=== PATIENT | female | born 1945 | race Caucasian/White ===

== ENCOUNTER 2017-12-07 11:05 | Inpatient (IN) | payer MEDICARE ==
[2017-12-07] VITALS (19 sets, daily range): BP systolic 87–145; BP diastolic 41–70
[~2017-12-07] VITALS: Ht 162.6 cm; Wt 75.3 kg
[2017-12-07 11:30] LABS: BASOPHILS % (AUTO) 0.3 % (0-1); EOSINOPHILS # (AUTO) 0.2 X10'3 (0-0.9); HEMATOCRIT 40.6 % (35.0-45.0); HEMOGLOBIN 13.7 g/dl (12.0-16.0); LYMPHOCYTES # (AUTO) 1.2 X10'3 (1.1-4.8); LYMPHOCYTES % (AUTO) 14.1 % (21-51); MEAN CORPUSCULAR HEMOGLOBIN 31.9 PG (27.0-31.0); MEAN CORPUSCULAR HGB CONC 33.7 % (33.0-36.5); MEAN CORPUSCULAR VOLUME 94.7 FL (78-98); MEAN PLATELET VOLUME 8.7 FL (7.4-10.4); MONOCYTES # (AUTO) 0.8 X10'3 (0-0.9); NEUTROPHILS # (AUTO) 6.4 X10'3 (1.8-7.7); NEUTROPHILS % (AUTO) 74.6 % (42-75); PLATELET COUNT 220 X10'3 (140-440); RED BLOOD COUNT 4.28 X10'6 (4.20-5.60); RED CELL DISTRIBUTION WIDTH 13.5 % (11.5-14.5); WHITE BLOOD COUNT 8.6 X10'3 (4.5-11.0)
[2017-12-07 11:39] LABS: PARTIAL THROMBOPLASTIN TIME 27 SECONDS (22-32); PROTHROMBIN TIME 9.9 SECONDS (9.0-12.0)
[2017-12-07 11:44] LABS: ALANINE AMINOTRANSFERASE 19 U/L (12-78); ALBUMIN 3.7 G/DL (3.4-5.0); ALKALINE PHOSPHATASE 59 IU/L (46-116); ANION GAP 9 (8-16); ASPARTATE AMINO TRANSFERASE 28 U/L (10-37); BILIRUBIN,TOTAL 0.4 MG/DL (0.1-1.0); BLOOD UREA NITROGEN 19 MG/DL (7-18); BUN/CREATININE RATIO 21.1 (6.6-38.0); CALCIUM 9.7 MG/DL (8.5-10.1); CHLORIDE 107 MMOL/L (99-107); GLUCOSE 115 MG/DL (70-104); POTASSIUM 3.8 MMOL/L (3.5-5.1); SODIUM 144 MMOL/L (135-145); TOTAL CARBON DIOXIDE 28.5 MMOL/L (24-32); TOTAL PROTEIN 7.4 G/DL (6.4-8.2); eGFR 61 ML/MIN
[2017-12-07] MEDS ORDERED: aspirin 81mg tab.chew PO ONE (11:50)
[2017-12-07] MEDS ORDERED: nitroGLYCERIN 1gm ointment UD TP ONE (11:55)
[2017-12-07] MEDS ORDERED: enoxaparin 100mg/ml syringe SUBCUT ONE (11:55)
[2017-12-07] MEDS ORDERED: nitroGLYCERIN-Tridil 50MG/D5W 250 ML IV PRN (12:22)
[2017-12-07] MEDS ORDERED: ASPI81TA52 PO (12:58)
[2017-12-07] MEDS ORDERED: SYN0.088T PO (12:58)
[2017-12-07] MEDS ORDERED: LIDOcaine 1%/PF (10mg/ml) 5ml vial ONE (13:01)
[2017-12-07] MEDS ORDERED: iohexol 350MG/ML 100ml bottle IV ONE (13:01)
[2017-12-07] MEDS ORDERED: diphenhydrAMINE 50 mg/ml inj ONE (14:00)
[2017-12-07] MEDS ORDERED: midazolam 2 mg/2 ml injection ONE (14:00)
[2017-12-07] MEDS ORDERED: heparin 1,000unit/ml 10ml vial 10 ML ONE (14:05)
[2017-12-07] MEDS ORDERED: phenylephrine 10mg/ml inj IV ONE (15:00)
[2017-12-07] MEDS ORDERED: heparin 1,000 units/ml 10ml inj ONE (15:00)
[2017-12-07] MEDS ORDERED: albumin (human) 25% 100 ML IV solution IV ONE (15:00)
[2017-12-07] MEDS ORDERED: methylPREDNISolone sod. succ. 500mg inj ONE (15:00)
[2017-12-07] MEDS ORDERED: aminocaproic acid 250 MG/1 ML inj. ONE ×2 (15:00→20:10)
[2017-12-07] MEDS ORDERED: calcium chloride 100 MG/1 ML inj IV ONE (15:00)
[2017-12-07] MEDS ORDERED: MAGNESIUM SULFATE 4 MEQ/ML (1gm/2ml) injection ONE (15:00)
[2017-12-07] MEDS ORDERED: potassium Cl 2 mEq/ml inj IV ONE (15:00)
[2017-12-07] MEDS ORDERED: sodium bicarbonate (8.4%) 1 mEq/ml syringe ONE (15:00)
[2017-12-07] MEDS ORDERED: heparin 10,000 units/1 ML INJ IV PRN (15:05)
[2017-12-07] MEDS ORDERED: dextrose 50%-water 50ml dispensing syringe IV PRN (15:15)
[2017-12-07] MEDS ORDERED: vancomycin/NS 1 GM ADD-VANTAGE 250 ML IV ONE (15:15)
[2017-12-07] MEDS ORDERED: cefazolin/dext.iso 2gm/50ml 50 ML IV ONE ×2 (15:15→21:25)
[2017-12-07] MEDS ORDERED: MESSAGE TO NURSING PO ONE ×4 (15:15)
[2017-12-07] MEDS ORDERED: ringers solution, lacted 1,000 ML IV ONE (15:36)
[2017-12-07] MEDS ORDERED: normal saline 1000ml 1,000 ML IV SCH (15:37)
[2017-12-07] MEDS ORDERED: ondansetron/PF 4mg/2ml inj IV PRN (15:40)
[2017-12-07] MEDS ORDERED: acetaminophen 325mg tablet PO PRN ×2 (15:40→16:55)
[2017-12-07] MEDS ORDERED: morphine 4 MG/ML inj SYRINge IV PRN ×2 (15:40)
[2017-12-07] MEDS ORDERED: mag hydrox/Alum hydrox/simeth 30ml oral suspension PO PRN (15:40)
[2017-12-07] MEDS ORDERED: magnesium hydroxide 30ml (MOM) UD suspension PO PRN (15:40)
[2017-12-07] MEDS ORDERED: HYDROcodone/acetaminophen 10/325mg tab PO PRN (16:55)
[2017-12-07] MEDS ORDERED: HYDROcodone/acetaminophen 5mg/325mg tablet PO PRN (16:55)
[2017-12-07] MEDS ORDERED: OXAZEpam 15mg capsule PO PRN (16:55)
[2017-12-07] MEDS ORDERED: proCHLORperazine 10 MG/2 ml inj IV PRN (16:55)
[2017-12-07 17:16] LABS: ABG BASE EXCESS -0.8 mmol/L (-2.0-3.0); ABG HCO3 23.5 mmol/L (22.0-26.0); ABG OXYGEN SATURATION 97.6 % (95-98); ABG PCO2 (T) 37.7 mmHg (32.0-45.0); ABG PH (T) 7.412 (7.350-7.450); ABG PO2 (T) 104.5 mmHg (83-108); ALLEN'S TEST Positive; FCOHb 0.1 % (0.5-1.5); FLOW 2 L/min; FMetHb 0.2 % (0.3-1.12); FO2Hb 97.3 % (94-100); TOTAL HEMOGLOBIN 13.2 G/dl (12.0-16.0)
[2017-12-07 17:24] LABS: BASOPHILS % (AUTO) 0.4 % (0-1); EOSINOPHILS % (AUTO) 0.1 % (0-6); HEMATOCRIT 37.9 % (35.0-45.0); HEMOGLOBIN 12.9 g/dl (12.0-16.0); LYMPHOCYTES % (AUTO) 14.6 % (21-51); MEAN CORPUSCULAR HEMOGLOBIN 32.3 PG (27.0-31.0); MEAN CORPUSCULAR HGB CONC 34.1 % (33.0-36.5); MEAN CORPUSCULAR VOLUME 94.9 FL (78-98); MEAN PLATELET VOLUME 9.8 FL (7.4-10.4); MONOCYTES # (AUTO) 0.4 X10'3 (0-0.9); MONOCYTES % (AUTO) 5.5 % (2-12); NEUTROPHILS # (AUTO) 5.7 X10'3 (1.8-7.7); NEUTROPHILS % (AUTO) 79.4 % (42-75); PLATELET COUNT 200 X10'3 (140-440); RED CELL DISTRIBUTION WIDTH 13.4 % (11.5-14.5); WHITE BLOOD COUNT 7.2 X10'3 (4.5-11.0)
[2017-12-07] MEDS ORDERED: insulin Lispro (HumaLOG) vial - multi-dose SQ SCH (18:00)
[2017-12-07] MEDS ORDERED: amiodarone 150mg/dext, iso-os 100 ML IV ONE (18:15)
[2017-12-07] MEDS ORDERED: amiodarone/D5 360MG/200ML BAG 200 ML IV SCH (18:15)
[2017-12-07] MEDS ORDERED: amiodarone/D5 450MG/250ML BAG 250 ML IV SCH (18:25)
[2017-12-07] MEDS ORDERED: mupirocin 2% ointment 22GM NS SCH (20:00)
[2017-12-07] MEDS ORDERED: nitroGLYCERIN in D5W 50mg/250ml (Tridil) infusion IV ONE (20:10)
[2017-12-07] MEDS ORDERED: isoflurane 100ml inhalation liquid IH ONE (20:10)
[2017-12-07] MEDS ORDERED: albuterol 2.5 MG/3 ML nebule ONE (20:14)
[2017-12-07 20:26] LABS: CLARITY,URINE CLEAR (Clear); COLOR,URINE YELLOW (Yellow); GLUCOSE, URINE NEGATIVE (Neg); KETONES,URINE 15 mg/dl (Neg); LEUKOCYTE ESTERASE ,URINE NEGATIVE (Neg); NITRITES, URINE NEGATIVE (Neg); OCCULT BLOOD,URINE NEGATIVE (Neg); PH,URINE 5.5 (4.8-8.0); PROTEIN,URINE NEGATIVE (Neg); UROBILINOGEN,URINE 0.2 E.U/dL (0.2-1.0)
[2017-12-07 20:31] LABS: UA COLLECTION TYPE FOLEY CATH
[2017-12-07 20:34] LABS: ANION GAP 8 (8-16); BLOOD UREA NITROGEN 14 MG/DL (7-18); BUN/CREATININE RATIO 16.5 (6.6-38.0); CALCIUM 8.5 MG/DL (8.5-10.1); CHLORIDE 106 MMOL/L (99-107); CREATININE 0.85 MG/DL (0.40-0.90); GLUCOSE 198 MG/DL (70-104); MAGNESIUM 1.6 MG/DL (1.5-2.4); POTASSIUM 3.8 MMOL/L (3.5-5.1); SODIUM 142 MMOL/L (135-145); TOTAL CARBON DIOXIDE 28.1 MMOL/L (24-32); eGFR 66 ML/MIN
[2017-12-07 20:35] LABS: HEMOGLOBIN A1C 5.6 % (4.5-6.2)
[2017-12-07] MEDS: insulin regular, human inj. 100 UNITS in normal saline 100ml IV soln 100 ML IV SCH ×2 (21:30)
[2017-12-07] MEDS ORDERED: SUFENTANIL CITRATE 50 MCG/ML 2ml ampule IV ONE (21:49)
[2017-12-07] MEDS ORDERED: rocuronium 10mg/ml inj IV ONE (21:55)
[2017-12-07] MEDS ORDERED: LORazepam 2 mg/ml vial ONE (21:58)
[2017-12-07] MEDS ORDERED: etomidate 2mg/ml inj. ONE (22:04)
[2017-12-07 22:18] LABS: PROTHROMBIN TIME 10.6 SECONDS (9.0-12.0)
[2017-12-07 22:28] LABS: PARTIAL THROMBOPLASTIN TIME 105 SECONDS (22-32)
[2017-12-07] MEDS ORDERED: papaverine 30 mg/ml 2ml inj. IA ONE (22:30)
[2017-12-07] MEDS ORDERED: heparin 10,000 units/1 ML INJ IR ONE (22:30)
[2017-12-07 23:10] LABS: ABG BASE EXCESS -0.9 mmol/L (-2.0-3.0); ABG HCO3 22.1 mmol/L (22.0-26.0); ABG OXYGEN SATURATION 99.3 % (95-98); ABG PCO2 31.4 mmHg (35.0-45.0); ABG PH 7.466 (7.350-7.450); CL (ABG) 108 mmol/L (99-107); FCOHb 0.1 % (0.5-1.5); FMetHb 0.3 % (0.3-1.12); FO2Hb 98.9 % (94-100); GLUCOSE (ABG) 111 mg/dl (70-105); IONIZED CA (ABG) 1.17 mmol/L (1.03-1.32); K (ABG) 3.4 mmol/L (3.3-5.1); NA (ABG) 139 mmol/L (135-145); TOTAL HEMOGLOBIN 11.7 G/dl (12.0-16.0)
[2017-12-08] VITALS (24 sets, daily range): BP systolic 86–124; BP diastolic 50–65
[2017-12-08 00:01] LABS: ABG BASE EXCESS -2.2 mmol/L (-2.0-3.0); ABG OXYGEN SATURATION 98.6 % (95-98); ABG PCO2 35.7 mmHg (35.0-45.0); ABG PH 7.408 (7.350-7.450); ABG PO2 160.3 mmHg (60.0-100.0); CL (ABG) 107 mmol/L (99-107); FCOHb 0.3 % (0.5-1.5); FMetHb 0.2 % (0.3-1.12); FO2Hb 98.1 % (94-100); GLUCOSE (ABG) 134 mg/dl (70-105); IONIZED CA (ABG) 1.13 mmol/L (1.03-1.32); K (ABG) 3.2 mmol/L (3.3-5.1); NA (ABG) 135 mmol/L (135-145); TOTAL HEMOGLOBIN 10.6 G/dl (12.0-16.0)
[2017-12-08 00:31] LABS: ABG BASE EXCESS -2.5 mmol/L (-2.0-3.0); ABG HCO3 21.3 mmol/L (22.0-26.0); ABG OXYGEN SATURATION 99.3 % (95-98); ABG PCO2 31.9 mmHg (35.0-45.0); ABG PH 7.443 (7.350-7.450); ABG PO2 358.3 mmHg (60.0-100.0); CL (ABG) 104 mmol/L (99-107); FCOHb 0.6 % (0.5-1.5); FMetHb 0.2 % (0.3-1.12); FO2Hb 98.5 % (94-100); GLUCOSE (ABG) 128 mg/dl (70-105); IONIZED CA (ABG) 0.96 mmol/L (1.03-1.32); K (ABG) 4.4 mmol/L (3.3-5.1); NA (ABG) 133 mmol/L (135-145)
[2017-12-08 00:51] LABS: ABG BASE EXCESS 1.2 mmol/L (-2.0-3.0); ABG HCO3 25.5 mmol/L (22.0-26.0); ABG OXYGEN SATURATION 99.3 % (95-98); ABG PCO2 38.7 mmHg (35.0-45.0); ABG PH 7.437 (7.350-7.450); ABG PO2 336.9 mmHg (60.0-100.0); CL (ABG) 106 mmol/L (99-107); FCOHb 0.5 % (0.5-1.5); FMetHb 0.1 % (0.3-1.12); FO2Hb 98.7 % (94-100); GLUCOSE (ABG) 135 mg/dl (70-105); K (ABG) 4.1 mmol/L (3.3-5.1); NA (ABG) 135 mmol/L (135-145); TOTAL HEMOGLOBIN 7.1 G/dl (12.0-16.0)
[2017-12-08 01:15] LABS: ABG BASE EXCESS -0.3 mmol/L (-2.0-3.0); ABG HCO3 24.5 mmol/L (22.0-26.0); ABG OXYGEN SATURATION 99.1 % (95-98); ABG PCO2 40.3 mmHg (35.0-45.0); ABG PH 7.401 (7.350-7.450); ABG PO2 354.8 mmHg (60.0-100.0); CL (ABG) 105 mmol/L (99-107); FCOHb 0.4 % (0.5-1.5); FMetHb 0.1 % (0.3-1.12); FO2Hb 98.6 % (94-100); GLUCOSE (ABG) 136 mg/dl (70-105); IONIZED CA (ABG) 1.14 mmol/L (1.03-1.32); K (ABG) 3.9 mmol/L (3.3-5.1); NA (ABG) 134 mmol/L (135-145)
[2017-12-08 01:56] LABS: ABG BASE EXCESS -0.2 mmol/L (-2.0-3.0); ABG OXYGEN SATURATION 97.2 % (95-98); ABG PCO2 36.9 mmHg (35.0-45.0); ABG PH 7.431 (7.350-7.450); ABG PO2 104.6 mmHg (60.0-100.0); CL (ABG) 108 mmol/L (99-107); FCOHb 0.1 % (0.5-1.5); FMetHb 0.8 % (0.3-1.12); FO2Hb 96.3 % (94-100); GLUCOSE (ABG) 146 mg/dl (70-105); IONIZED CA (ABG) 1.21 mmol/L (1.03-1.32); K (ABG) 3.6 mmol/L (3.3-5.1); NA (ABG) 137 mmol/L (135-145); TOTAL HEMOGLOBIN 7.5 G/dl (12.0-16.0)
[2017-12-08] MEDS ORDERED: dextrose 50%-water 50ml dispensing syringe IV PRN (02:15)
[2017-12-08] MEDS ORDERED: nitroGLYCERIN-Tridil 50MG/D5W 250 ML IV PRN (02:15)
[2017-12-08] MEDS ORDERED: sodium phosphate inj. 15 MMOL in dextrose 5%-water 150 ML IV PRN (02:15)
[2017-12-08] MEDS ORDERED: Neutra Phos packet PO PRN (02:15)
[2017-12-08] MEDS ORDERED: magnesium 4gm in 100ml NS 100 ML IV PRN (02:15)
[2017-12-08] MEDS ORDERED: niCARDipine/sod cl 20mg/200ml 200 ML IV PRN (02:15)
[2017-12-08] MEDS ORDERED: magnesium hydroxide 30ml (MOM) UD suspension PO PRN (02:15)
[2017-12-08] MEDS: sodium chloride 0.45% 1,000 ML IV SCH (02:15)
[2017-12-08] MEDS ORDERED: potassium Cl 20mEq/100mL bag 100 ML IV PRN ×2 (02:15)
[2017-12-08] MEDS ORDERED: metoclopramide 5 mg/ml inj IV PRN (02:15)
[2017-12-08] MEDS ORDERED: insulin regular, human inj. 100 UNITS in normal saline 100ml IV soln 100 ML IV SCH ×2 (02:15)
[2017-12-08] MEDS ORDERED: magnesium 2GM in 50ml NS 50 ML IV PRN (02:15)
[2017-12-08] MEDS ORDERED: sodium phosphate inj. 30 MMOL in dextrose 5%-water 250 ML IV PRN (02:15)
[2017-12-08] MEDS ORDERED: DOPamine 400mg/D5W 250ml 250 ML IV PRN (02:15)
[2017-12-08] MEDS ORDERED: normal saline 250ml IV soln 250 ML IV PRN (02:15)
[2017-12-08 03:05] LABS: ABG BASE EXCESS -2.9 mmol/L (-2.0-3.0); ABG HCO3 20.8 mmol/L (22.0-26.0); ABG OXYGEN SATURATION 98.7 % (95-98); ABG PCO2 (T) 30.9 mmHg (32.0-45.0); ABG PH (T) 7.441 (7.350-7.450); ABG PO2 (T) 221.1 mmHg (83-108); FCOHb 0.2 % (0.5-1.5); FMetHb 0.1 % (0.3-1.12); FO2Hb 98.4 % (94-100); MINUTE VOLUME 6 L/min; PEEP 5 cm H2O; RESPIRATORY RATE 12 b/min; RESPIRATORY RATE (OBSERVED) 12 b/min; TIDAL VOLUME 500 mL; TOTAL HEMOGLOBIN 10.6 G/dl (12.0-16.0)
[2017-12-08 03:08] LABS: BASOPHILS % (AUTO) 0.2 % (0-1); EOSINOPHILS % (AUTO) 0.1 % (0-6); HEMATOCRIT 29.3 % (35.0-45.0); HEMOGLOBIN 10.1 g/dl (12.0-16.0); LYMPHOCYTES # (AUTO) 0.7 X10'3 (1.1-4.8); LYMPHOCYTES % (AUTO) 6.2 % (21-51); MEAN CORPUSCULAR HEMOGLOBIN 32.2 PG (27.0-31.0); MEAN CORPUSCULAR HGB CONC 34.3 % (33.0-36.5); MEAN CORPUSCULAR VOLUME 93.9 FL (78-98); MEAN PLATELET VOLUME 8.7 FL (7.4-10.4); MONOCYTES # (AUTO) 0.7 X10'3 (0-0.9); MONOCYTES % (AUTO) 6.3 % (2-12); NEUTROPHILS # (AUTO) 10.3 X10'3 (1.8-7.7); NEUTROPHILS % (AUTO) 87.2 % (42-75); PLATELET COUNT 122 X10'3 (140-440); RED BLOOD COUNT 3.12 X10'6 (4.20-5.60); RED CELL DISTRIBUTION WIDTH 13.3 % (11.5-14.5); WHITE BLOOD COUNT 11.8 X10'3 (4.5-11.0)
[2017-12-08] MEDS: albumin (Human) 5% 250ml 250 ML IV PRN ×3 (03:11→07:10)
[2017-12-08] MEDS ORDERED: amiodarone/D5 450MG/250ML BAG 250 ML IV ONE (03:19)
[2017-12-08 03:21] LABS: INR 1.2 INR; PARTIAL THROMBOPLASTIN TIME 35 SECONDS (22-32); PROTHROMBIN TIME 12.2 SECONDS (9.0-12.0)
[2017-12-08 03:26] LABS: ALANINE AMINOTRANSFERASE 29 U/L (12-78); ALBUMIN 3.1 G/DL (3.4-5.0); ALBUMIN/GLOBULIN RATIO 1.6 (1.1-1.5); ALKALINE PHOSPHATASE 32 IU/L (46-116); ANION GAP 11 (8-16); ASPARTATE AMINO TRANSFERASE 204 U/L (10-37); BILIRUBIN,TOTAL 0.7 MG/DL (0.1-1.0); BLOOD UREA NITROGEN 11 MG/DL (7-18); BUN/CREATININE RATIO 12.8 (6.6-38.0); CALCIUM 8.3 MG/DL (8.5-10.1); CHLORIDE 110 MMOL/L (99-107); CREATININE 0.86 MG/DL (0.40-0.90); GLUCOSE 149 MG/DL (70-104); MAGNESIUM 2.8 MG/DL (1.5-2.4); PHOSPHORUS 1.9 MG/DL (2.3-4.5); POTASSIUM 3.6 MMOL/L (3.5-5.1); SODIUM 146 MMOL/L (135-145); TOTAL CARBON DIOXIDE 25.5 MMOL/L (24-32); eGFR 65 ML/MIN
[2017-12-08] MEDS: morphine 4 MG/ML inj SYRINge IV PRN ×5 (03:44→21:56)
[2017-12-08] MEDS: potassium Cl 20mEq/100mL bag 100 ML IV PRN ×2 (03:44→04:56)
[2017-12-08] MEDS ORDERED: amiodarone/D5 360MG/200ML BAG 200 ML IV SCH (03:50)
[2017-12-08] MEDS: insulin regular, human inj. 100 UNITS in normal saline 100ml IV soln 100 ML IV SCH ×6 (04:13→15:40)
[2017-12-08 05:46] LABS: ACTIVATED CLOTTING TIME 151 SEC (101-148)
[2017-12-08 05:46] LABS: ACT @ 1.70 U 350 SEC (193-297); ACT @ 2.84 U 506 SEC (260-420); BASELINE ACT 180 SEC (101-148); PATIENT WEIGHT 71.0k KG
[2017-12-08] MEDS ORDERED: LORazepam 2 mg/ml vial IV ONE (06:00)
[2017-12-08] MEDS ORDERED: famotidine 20mg tablet PO ONE (06:00)
[2017-12-08] MEDS ORDERED: pantoprazole 40mg Tablet.DR PO SCH (07:30)
[2017-12-08] MEDS: ondansetron/PF 4mg/2ml inj IV PRN (07:43)
[2017-12-08] MEDS: cefazolin 1gm/NS 100mL 100 ML IV SCH ×2 (07:45→16:50)
[2017-12-08] MEDS: vancomycin/NS 1 GM ADD-VANTAGE 250 ML IV SCH ×2 (08:19→20:03)
[2017-12-08] MEDS: insulin Lispro (HumaLOG) vial - multi-dose SQ SCH ×3 (09:00→17:56)
[2017-12-08] MEDS: pantoprazole 40 MG vial IV SCH (09:32)
[2017-12-08 09:50] LABS: BASOPHILS % (AUTO) 0 % (0-1); EOSINOPHILS # (AUTO) 0.1 X10'3 (0-0.9); EOSINOPHILS % (AUTO) 0.8 % (0-6); HEMATOCRIT 24.3 % (35.0-45.0); HEMOGLOBIN 8.5 g/dl (12.0-16.0); LYMPHOCYTES # (AUTO) 0.4 X10'3 (1.1-4.8); LYMPHOCYTES % (AUTO) 4.1 % (21-51); MEAN CORPUSCULAR HEMOGLOBIN 32.5 PG (27.0-31.0); MEAN CORPUSCULAR VOLUME 92.9 FL (78-98); MEAN PLATELET VOLUME 9.6 FL (7.4-10.4); MONOCYTES # (AUTO) 0.5 X10'3 (0-0.9); MONOCYTES % (AUTO) 5.6 % (2-12); NEUTROPHILS # (AUTO) 8.5 X10'3 (1.8-7.7); NEUTROPHILS % (AUTO) 89.5 % (42-75); PLATELET COUNT 103 X10'3 (140-440); RED BLOOD COUNT 2.61 X10'6 (4.20-5.60); RED CELL DISTRIBUTION WIDTH 13.7 % (11.5-14.5); WHITE BLOOD COUNT 9.4 X10'3 (4.5-11.0)
[2017-12-08 09:52] LABS: ALBUMIN 3.7 G/DL (3.4-5.0); ANION GAP 12 (8-16); BLOOD UREA NITROGEN 12 MG/DL (7-18); BUN/CREATININE RATIO 11.9 (6.6-38.0); CALCIUM 7.7 MG/DL (8.5-10.1); CHLORIDE 112 MMOL/L (99-107); CREATININE 1.01 MG/DL (0.40-0.90); GLUCOSE 138 MG/DL (70-104); POTASSIUM 4.4 MMOL/L (3.5-5.1); SODIUM 146 MMOL/L (135-145); TOTAL CARBON DIOXIDE 22.3 MMOL/L (24-32); eGFR 54 ML/MIN
[2017-12-08] MEDS ORDERED: MESSAGE TO NURSING PO ONE (10:00)
[2017-12-08 10:19] LABS: TOTAL HEMOGLOBIN 6.9 G/dl (12.0-16.0)
[2017-12-08 14:42] LABS: TOTAL HEMOGLOBIN 6.8 G/dl (12.0-16.0)
[2017-12-08] MEDS: HYDROcodone/acetaminophen 10/325mg tab PO PRN ×2 (15:29→20:04)
[2017-12-08] MEDS: atorvastatin 10mg tablet PO SCH (16:49)
[2017-12-08] MEDS: docusate sod 100mg capsule PO SCH ×2 (16:49→20:03)
[2017-12-08] MEDS: aspirin 325mg tablet, delayed-release (Ecotrin) PO SCH (16:49)
[2017-12-08] MEDS: levoTHYROXINE 88mcg tablet PO SCH (16:50)
[2017-12-08] MEDS: mupirocin 2% ointment 22GM NS SCH ×2 (16:51→20:03)
[2017-12-09] VITALS (20 sets, daily range): BP systolic 87–124; BP diastolic 48–78
[2017-12-09] MEDS: cefazolin 1gm/NS 100mL 100 ML IV SCH ×3 (00:21→16:30)
[2017-12-09] MEDS: HYDROcodone/acetaminophen 10/325mg tab PO PRN ×3 (00:21→09:27)
[2017-12-09] MEDS: morphine 4 MG/ML inj SYRINge IV PRN (05:10)
[2017-12-09 05:28] LABS: BASOPHILS % (AUTO) 0 % (0-1); EOSINOPHILS % (AUTO) 0 % (0-6); HEMATOCRIT 29.5 % (35.0-45.0); HEMOGLOBIN 10.1 g/dl (12.0-16.0); LYMPHOCYTES # (AUTO) 0.8 X10'3 (1.1-4.8); LYMPHOCYTES % (AUTO) 5.8 % (21-51); MEAN CORPUSCULAR HEMOGLOBIN 31.8 PG (27.0-31.0); MEAN CORPUSCULAR HGB CONC 34.1 % (33.0-36.5); MEAN CORPUSCULAR VOLUME 93.4 FL (78-98); MEAN PLATELET VOLUME 9.6 FL (7.4-10.4); MONOCYTES # (AUTO) 1.5 X10'3 (0-0.9); MONOCYTES % (AUTO) 10.7 % (2-12); NEUTROPHILS # (AUTO) 12.1 X10'3 (1.8-7.7); NEUTROPHILS % (AUTO) 83.5 % (42-75); PLATELET COUNT 103 X10'3 (140-440); RED BLOOD COUNT 3.16 X10'6 (4.20-5.60); RED CELL DISTRIBUTION WIDTH 14.6 % (11.5-14.5); WHITE BLOOD COUNT 14.5 X10'3 (4.5-11.0)
[2017-12-09 05:40] LABS: PARTIAL THROMBOPLASTIN TIME 40 SECONDS (22-32); PROTHROMBIN TIME 10.6 SECONDS (9.0-12.0)
[2017-12-09 06:18] LABS: ALANINE AMINOTRANSFERASE 38 U/L (12-78); ALBUMIN 3.4 G/DL (3.4-5.0); ALBUMIN/GLOBULIN RATIO 1.5 (1.1-1.5); ALKALINE PHOSPHATASE 32 IU/L (46-116); ANION GAP 11 (8-16); ASPARTATE AMINO TRANSFERASE 145 U/L (10-37); BILIRUBIN,TOTAL 0.5 MG/DL (0.1-1.0); BLOOD UREA NITROGEN 21 MG/DL (7-18); BUN/CREATININE RATIO 21.2 (6.6-38.0); CALCIUM 7.8 MG/DL (8.5-10.1); CHLORIDE 111 MMOL/L (99-107); CREATININE 0.99 MG/DL (0.40-0.90); GLUCOSE 129 MG/DL (70-104); MAGNESIUM 2.2 MG/DL (1.5-2.4); POTASSIUM 4.8 MMOL/L (3.5-5.1); SODIUM 144 MMOL/L (135-145); TOTAL CARBON DIOXIDE 21.8 MMOL/L (24-32); TOTAL PROTEIN 5.6 G/DL (6.4-8.2); eGFR 55 ML/MIN
[2017-12-09] MEDS: levoTHYROXINE 88mcg tablet PO SCH (06:53)
[2017-12-09] MEDS: metoprolol tartrate 12.5mg (1/2 tablet) PO SCH ×2 (08:30→20:00)
[2017-12-09] MEDS: atorvastatin 10mg tablet PO SCH (08:46)
[2017-12-09] MEDS: docusate sod 100mg capsule PO SCH ×2 (08:47→20:46)
[2017-12-09] MEDS: aspirin 325mg tablet, delayed-release (Ecotrin) PO SCH (08:47)
[2017-12-09] MEDS: pantoprazole 40 MG vial IV SCH (08:47)
[2017-12-09] MEDS: ondansetron/PF 4mg/2ml inj IV PRN ×2 (08:50→16:16)
[2017-12-09] MEDS: vancomycin/NS 1 GM ADD-VANTAGE 250 ML IV SCH (08:50)
[2017-12-09] MEDS: insulin Lispro (HumaLOG) vial - multi-dose SQ SCH (09:00)
[2017-12-09] MEDS: mupirocin 2% ointment 22GM NS SCH ×2 (09:24→20:46)
[2017-12-09] MEDS ORDERED: furosemide 40mg/4ml inj IV ONE (11:40)
[2017-12-10] VITALS (24 sets, daily range): BP systolic 97–128; BP diastolic 57–76
[2017-12-10 02:54] LABS: BASOPHILS # (AUTO) 0.1 X10'3 (0-0.2); BASOPHILS % (AUTO) 0.8 % (0-1); EOSINOPHILS % (AUTO) 0.1 % (0-6); HEMATOCRIT 29.4 % (35.0-45.0); HEMOGLOBIN 10.1 g/dl (12.0-16.0); LYMPHOCYTES # (AUTO) 0.7 X10'3 (1.1-4.8); LYMPHOCYTES % (AUTO) 5.1 % (21-51); MEAN CORPUSCULAR HEMOGLOBIN 32.3 PG (27.0-31.0); MEAN CORPUSCULAR HGB CONC 34.2 % (33.0-36.5); MEAN CORPUSCULAR VOLUME 94.3 FL (78-98); MEAN PLATELET VOLUME 9.8 FL (7.4-10.4); MONOCYTES # (AUTO) 1.3 X10'3 (0-0.9); MONOCYTES % (AUTO) 8.9 % (2-12); NEUTROPHILS # (AUTO) 12.5 X10'3 (1.8-7.7); NEUTROPHILS % (AUTO) 85.1 % (42-75); PLATELET COUNT 98 X10'3 (140-440); RED BLOOD COUNT 3.12 X10'6 (4.20-5.60); RED CELL DISTRIBUTION WIDTH 13.5 % (11.5-14.5); WHITE BLOOD COUNT 14.6 X10'3 (4.5-11.0)
[2017-12-10 03:07] LABS: ALBUMIN 3.3 G/DL (3.4-5.0); ANION GAP 10 (8-16); BLOOD UREA NITROGEN 37 MG/DL (7-18); CALCIUM 8.3 MG/DL (8.5-10.1); CHLORIDE 109 MMOL/L (99-107); CREATININE 1.32 MG/DL (0.40-0.90); GLUCOSE 130 MG/DL (70-104); PHOSPHORUS 3.9 MG/DL (2.3-4.5); POTASSIUM 5.6 MMOL/L (3.5-5.1); SODIUM 143 MMOL/L (135-145); TOTAL CARBON DIOXIDE 24.5 MMOL/L (24-32); eGFR 39 ML/MIN
[2017-12-10] MEDS: acetaminophen 325mg tablet PO PRN ×2 (03:19→13:24)
[2017-12-10] MEDS: sodium chloride 0.45% 1,000 ML IV SCH (03:20)
[2017-12-10] MEDS: levoTHYROXINE 88mcg tablet PO SCH (09:05)
[2017-12-10] MEDS: pantoprazole 40 MG vial IV SCH (09:05)
[2017-12-10] MEDS: aspirin 325mg tablet, delayed-release (Ecotrin) PO SCH (09:05)
[2017-12-10] MEDS: metoprolol tartrate 12.5mg (1/2 tablet) PO SCH ×2 (09:06→20:25)
[2017-12-10] MEDS: docusate sod 100mg capsule PO SCH ×2 (09:06→20:25)
[2017-12-10] MEDS: atorvastatin 10mg tablet PO SCH (09:06)
[2017-12-10 12:45] LABS: ALBUMIN 3.1 G/DL (3.4-5.0); ANION GAP 8 (8-16); BLOOD UREA NITROGEN 41 MG/DL (7-18); BUN/CREATININE RATIO 34.2 (6.6-38.0); CALCIUM 8.2 MG/DL (8.5-10.1); CHLORIDE 108 MMOL/L (99-107); GLUCOSE 117 MG/DL (70-104); POTASSIUM 5.5 MMOL/L (3.5-5.1); SODIUM 141 MMOL/L (135-145); eGFR 44 ML/MIN
[2017-12-10] MEDS: Protein Smoothie (high protein) 240ml (8oz) cup PO SCH (17:00)
[2017-12-11] VITALS (24 sets, daily range): BP systolic 109–144; BP diastolic 60–90
[2017-12-11 03:19] LABS: BASOPHILS % (AUTO) 0.1 % (0-1); EOSINOPHILS % (AUTO) 0 % (0-6); HEMATOCRIT 28.5 % (35.0-45.0); HEMOGLOBIN 9.7 g/dl (12.0-16.0); LYMPHOCYTES # (AUTO) 0.8 X10'3 (1.1-4.8); LYMPHOCYTES % (AUTO) 6.6 % (21-51); MEAN CORPUSCULAR HEMOGLOBIN 31.9 PG (27.0-31.0); MEAN CORPUSCULAR HGB CONC 33.9 % (33.0-36.5); MEAN CORPUSCULAR VOLUME 94.1 FL (78-98); MEAN PLATELET VOLUME 9.8 FL (7.4-10.4); MONOCYTES # (AUTO) 1.2 X10'3 (0-0.9); NEUTROPHILS # (AUTO) 9.9 X10'3 (1.8-7.7); NEUTROPHILS % (AUTO) 83.3 % (42-75); PLATELET COUNT 127 X10'3 (140-440); RED BLOOD COUNT 3.03 X10'6 (4.20-5.60); RED CELL DISTRIBUTION WIDTH 14.1 % (11.5-14.5); WHITE BLOOD COUNT 11.9 X10'3 (4.5-11.0)
[2017-12-11 03:42] LABS: ANION GAP 7 (8-16); BLOOD UREA NITROGEN 40 MG/DL (7-18); BUN/CREATININE RATIO 36.7 (6.6-38.0); CALCIUM 8.5 MG/DL (8.5-10.1); CHLORIDE 110 MMOL/L (99-107); CREATININE 1.09 MG/DL (0.40-0.90); GLUCOSE 109 MG/DL (70-104); MAGNESIUM 2.6 MG/DL (1.5-2.4); PHOSPHORUS 2.9 MG/DL (2.3-4.5); SODIUM 144 MMOL/L (135-145); TOTAL CARBON DIOXIDE 26.6 MMOL/L (24-32); eGFR 49 ML/MIN
[2017-12-11] MEDS: albuterol 2.5 MG/3 ML nebule NEB PRN ×3 (07:25→20:51)
[2017-12-11] MEDS: atorvastatin 10mg tablet PO SCH (07:53)
[2017-12-11] MEDS: metoprolol tartrate 12.5mg (1/2 tablet) PO SCH ×2 (07:53→20:41)
[2017-12-11] MEDS: levoTHYROXINE 88mcg tablet PO SCH (07:53)
[2017-12-11] MEDS: pantoprazole 40 MG vial IV SCH (07:53)
[2017-12-11] MEDS: docusate sod 100mg capsule PO SCH ×2 (07:53→20:41)
[2017-12-11] MEDS: aspirin 325mg tablet, delayed-release (Ecotrin) PO SCH (07:53)
[2017-12-11] MEDS: ondansetron/PF 4mg/2ml inj IV PRN (08:26)
[2017-12-11] MEDS: Protein Smoothie (high protein) 240ml (8oz) cup PO SCH ×3 (13:39→18:30)
[2017-12-11] MEDS: acetaminophen 325mg tablet PO PRN (20:42)
[2017-12-12] VITALS (17 sets, daily range): BP systolic 97–135; BP diastolic 49–82
[2017-12-12] MEDS: sodium chloride 0.45% 1,000 ML IV SCH (02:56)
[2017-12-12 03:16] LABS: BASOPHILS % (AUTO) 0.2 % (0-1); EOSINOPHILS # (AUTO) 0.1 X10'3 (0-0.9); EOSINOPHILS % (AUTO) 1.3 % (0-6); HEMATOCRIT 27.6 % (35.0-45.0); HEMOGLOBIN 9.4 g/dl (12.0-16.0); LYMPHOCYTES % (AUTO) 12.8 % (21-51); MEAN CORPUSCULAR HGB CONC 34.1 % (33.0-36.5); MEAN CORPUSCULAR VOLUME 93.8 FL (78-98); MEAN PLATELET VOLUME 9.1 FL (7.4-10.4); MONOCYTES % (AUTO) 12.3 % (2-12); NEUTROPHILS # (AUTO) 5.9 X10'3 (1.8-7.7); NEUTROPHILS % (AUTO) 73.4 % (42-75); PLATELET COUNT 145 X10'3 (140-440); RED BLOOD COUNT 2.95 X10'6 (4.20-5.60); RED CELL DISTRIBUTION WIDTH 13.6 % (11.5-14.5); WHITE BLOOD COUNT 8.1 X10'3 (4.5-11.0)
[2017-12-12 03:32] LABS: ALBUMIN 2.8 G/DL (3.4-5.0); ANION GAP 7 (8-16); BLOOD UREA NITROGEN 35 MG/DL (7-18); CALCIUM 8.3 MG/DL (8.5-10.1); CHLORIDE 109 MMOL/L (99-107); GLUCOSE 95 MG/DL (70-104); MAGNESIUM 2.2 MG/DL (1.5-2.4); PHOSPHORUS 2.9 MG/DL (2.3-4.5); POTASSIUM 4.6 MMOL/L (3.5-5.1); SODIUM 145 MMOL/L (135-145); eGFR 54 ML/MIN
[2017-12-12] MEDS: levoTHYROXINE 88mcg tablet PO SCH (07:51)
[2017-12-12] MEDS: pantoprazole 40mg Tablet.DR PO SCH (07:51)
[2017-12-12] MEDS: aspirin 325mg tablet, delayed-release (Ecotrin) PO SCH (08:27)
[2017-12-12] MEDS: metoprolol tartrate 12.5mg (1/2 tablet) PO SCH ×2 (08:27→20:44)
[2017-12-12] MEDS: docusate sod 100mg capsule PO SCH ×3 (08:27→20:44)
[2017-12-12] MEDS: atorvastatin 10mg tablet PO SCH (08:27)
[2017-12-12] MEDS ORDERED: magnesium 2GM in 50ml NS 50 ML IV PRN (08:30)
[2017-12-12] MEDS ORDERED: magnesium Cl slow-release 64mg tablet PO PRN (08:30)
[2017-12-12] MEDS ORDERED: potassium Cl 20 mEq SR tablet PO PRN ×2 (08:30)
[2017-12-12] MEDS ORDERED: magnesium 4gm in 100ml NS 100 ML IV PRN (08:30)
[2017-12-12] MEDS ORDERED: potassium Cl 40MEQ/NS 500ml 500 ML IV PRN ×2 (08:30)
[2017-12-12] MEDS: albuterol 2.5 MG/3 ML nebule NEB PRN ×2 (12:21→22:42)
[2017-12-12] MEDS: Protein Smoothie (high protein) 240ml (8oz) cup PO SCH ×3 (12:30→17:41)
[2017-12-12] MEDS: magnesium Cl slow-release 64mg tablet PO SCH (19:32)
[2017-12-12] MEDS: potassium Cl 20 mEq SR tablet PO SCH (19:32)
[2017-12-12] MEDS ORDERED: amiodarone/D5 360MG/200ML BAG 200 ML IV SCH (20:50)
[2017-12-12] MEDS ORDERED: amiodarone 150mg/dext, iso-os 100 ML IV ONE (20:50)
[2017-12-12] MEDS: amiodarone/D5 450MG/250ML BAG 250 ML IV SCH (21:18)
[2017-12-13] VITALS (24 sets, daily range): BP systolic 88–121; BP diastolic 8–83
[2017-12-13] MEDS ORDERED: furosemide 20 MG/2 ML vial IV ONE (00:15)
[2017-12-13] MEDS: amiodarone/D5 450MG/250ML BAG 250 ML IV SCH ×2 (05:32→21:43)
[2017-12-13 05:42] LABS: BASOPHILS % (AUTO) 0.2 % (0-1); EOSINOPHILS # (AUTO) 0.2 X10'3 (0-0.9); EOSINOPHILS % (AUTO) 3.3 % (0-6); HEMATOCRIT 29.5 % (35.0-45.0); HEMOGLOBIN 10.1 g/dl (12.0-16.0); LYMPHOCYTES # (AUTO) 1.1 X10'3 (1.1-4.8); LYMPHOCYTES % (AUTO) 14.7 % (21-51); MEAN CORPUSCULAR HEMOGLOBIN 32.1 PG (27.0-31.0); MEAN CORPUSCULAR HGB CONC 34.2 % (33.0-36.5); MEAN CORPUSCULAR VOLUME 93.9 FL (78-98); MEAN PLATELET VOLUME 9.4 FL (7.4-10.4); MONOCYTES # (AUTO) 1.1 X10'3 (0-0.9); NEUTROPHILS # (AUTO) 4.8 X10'3 (1.8-7.7); NEUTROPHILS % (AUTO) 66.8 % (42-75); PLATELET COUNT 169 X10'3 (140-440); RED BLOOD COUNT 3.14 X10'6 (4.20-5.60); RED CELL DISTRIBUTION WIDTH 13.6 % (11.5-14.5); WHITE BLOOD COUNT 7.2 X10'3 (4.5-11.0)
[2017-12-13] MEDS: acetaminophen 325mg tablet PO PRN ×2 (05:51→21:00)
[2017-12-13 06:05] LABS: ALBUMIN 2.8 G/DL (3.4-5.0); ANION GAP 7 (8-16); BLOOD UREA NITROGEN 25 MG/DL (7-18); BUN/CREATININE RATIO 25.3 (6.6-38.0); CALCIUM 8.6 MG/DL (8.5-10.1); CHLORIDE 105 MMOL/L (99-107); CREATININE 0.99 MG/DL (0.40-0.90); GLUCOSE 104 MG/DL (70-104); MAGNESIUM 1.9 MG/DL (1.5-2.4); POTASSIUM 3.9 MMOL/L (3.5-5.1); SODIUM 143 MMOL/L (135-145); TOTAL CARBON DIOXIDE 30.8 MMOL/L (24-32); eGFR 55 ML/MIN
[2017-12-13 06:07] LABS: TROPONIN I 10.11 NG/ML (0.0-0.05)
[2017-12-13 07:44] LABS: LARGE PLATELETS FEW; PLATELET ESTIMATE NORMAL
[2017-12-13] MEDS: metoprolol tartrate 12.5mg (1/2 tablet) PO SCH ×2 (07:44→20:58)
[2017-12-13] MEDS: levoTHYROXINE 88mcg tablet PO SCH (07:44)
[2017-12-13] MEDS: atorvastatin 10mg tablet PO SCH (07:44)
[2017-12-13] MEDS: magnesium Cl slow-release 64mg tablet PO SCH ×2 (07:44→20:58)
[2017-12-13] MEDS: pantoprazole 40mg Tablet.DR PO SCH (07:45)
[2017-12-13] MEDS: aspirin 325mg tablet, delayed-release (Ecotrin) PO SCH (07:45)
[2017-12-13] MEDS: potassium Cl 20 mEq SR tablet PO SCH ×2 (07:45→20:58)
[2017-12-13] MEDS: docusate sod 100mg capsule PO SCH ×2 (07:47→20:00)
[2017-12-13] MEDS: K and/or MAG REPLACEMENT MC SCH (08:00)
[2017-12-13] MEDS ORDERED: magnesium 2GM in 50ml NS 50 ML IV PRN (08:45)
[2017-12-13] MEDS ORDERED: magnesium 4gm in 100ml NS 100 ML IV PRN (08:45)
[2017-12-13] MEDS ORDERED: potassium Cl 40MEQ/NS 500ml 500 ML IV PRN ×2 (08:45)
[2017-12-13] MEDS: Protein Smoothie (high protein) 240ml (8oz) cup PO SCH ×3 (13:20→17:54)
[2017-12-13] MEDS: albuterol 2.5 MG/3 ML nebule NEB PRN (17:14)
[2017-12-14] VITALS (23 sets, daily range): BP systolic 90–144; BP diastolic 51–79
[2017-12-14 05:25] LABS: BASOPHILS % (AUTO) 0.1 % (0-1); EOSINOPHILS # (AUTO) 0.3 X10'3 (0-0.9); EOSINOPHILS % (AUTO) 3.9 % (0-6); HEMATOCRIT 29.3 % (35.0-45.0); LYMPHOCYTES # (AUTO) 1.1 X10'3 (1.1-4.8); LYMPHOCYTES % (AUTO) 14.5 % (21-51); MEAN CORPUSCULAR VOLUME 94.3 FL (78-98); MEAN PLATELET VOLUME 8.9 FL (7.4-10.4); MONOCYTES % (AUTO) 12.9 % (2-12); NEUTROPHILS # (AUTO) 5.3 X10'3 (1.8-7.7); NEUTROPHILS % (AUTO) 68.6 % (42-75); PLATELET COUNT 193 X10'3 (140-440); RED BLOOD COUNT 3.11 X10'6 (4.20-5.60); WHITE BLOOD COUNT 7.7 X10'3 (4.5-11.0)
[2017-12-14 05:50] LABS: ALBUMIN 2.7 G/DL (3.4-5.0); ANION GAP 5 (8-16); BLOOD UREA NITROGEN 25 MG/DL (7-18); BUN/CREATININE RATIO 24.8 (6.6-38.0); CALCIUM 8.5 MG/DL (8.5-10.1); CHLORIDE 107 MMOL/L (99-107); CREATININE 1.01 MG/DL (0.40-0.90); GLUCOSE 103 MG/DL (70-104); MAGNESIUM 2.4 MG/DL (1.5-2.4); POTASSIUM 4.9 MMOL/L (3.5-5.1); SODIUM 142 MMOL/L (135-145); TOTAL CARBON DIOXIDE 29.9 MMOL/L (24-32); eGFR 54 ML/MIN
[2017-12-14] MEDS: atorvastatin 10mg tablet PO SCH (07:44)
[2017-12-14] MEDS: aspirin 325mg tablet, delayed-release (Ecotrin) PO SCH (07:44)
[2017-12-14] MEDS: pantoprazole 40mg Tablet.DR PO SCH (07:44)
[2017-12-14] MEDS: levoTHYROXINE 88mcg tablet PO SCH (07:44)
[2017-12-14] MEDS: metoprolol tartrate 12.5mg (1/2 tablet) PO SCH ×2 (07:44→20:06)
[2017-12-14] MEDS: acetaminophen 325mg tablet PO PRN ×2 (07:52→23:46)
[2017-12-14] MEDS: docusate sod 100mg capsule PO SCH ×2 (08:00→20:00)
[2017-12-14] MEDS: potassium Cl 20 mEq SR tablet PO SCH ×2 (08:00→20:00)
[2017-12-14] MEDS: magnesium Cl slow-release 64mg tablet PO SCH ×2 (08:00→20:00)
[2017-12-14] MEDS: K and/or MAG REPLACEMENT MC SCH (08:47)
[2017-12-14] MEDS: amiodarone 200mg tablet PO SCH ×2 (09:38→20:08)
[2017-12-14] MEDS: Protein Smoothie (high protein) 240ml (8oz) cup PO SCH ×3 (12:31→17:30)
[2017-12-15] VITALS (13 sets, daily range): BP systolic 95–139; BP diastolic 54–81
[2017-12-15 05:16] LABS: BASOPHILS % (AUTO) 0.3 % (0-1); EOSINOPHILS # (AUTO) 0.3 X10'3 (0-0.9); EOSINOPHILS % (AUTO) 3.4 % (0-6); HEMATOCRIT 30.6 % (35.0-45.0); HEMOGLOBIN 10.3 g/dl (12.0-16.0); LYMPHOCYTES # (AUTO) 1.2 X10'3 (1.1-4.8); LYMPHOCYTES % (AUTO) 14.6 % (21-51); MEAN CORPUSCULAR HEMOGLOBIN 31.8 PG (27.0-31.0); MEAN CORPUSCULAR HGB CONC 33.8 % (33.0-36.5); MEAN CORPUSCULAR VOLUME 94.2 FL (78-98); MONOCYTES % (AUTO) 11.7 % (2-12); NEUTROPHILS # (AUTO) 5.8 X10'3 (1.8-7.7); PLATELET COUNT 229 X10'3 (140-440); RED BLOOD COUNT 3.25 X10'6 (4.20-5.60); RED CELL DISTRIBUTION WIDTH 13.8 % (11.5-14.5); WHITE BLOOD COUNT 8.2 X10'3 (4.5-11.0)
[2017-12-15 05:36] LABS: ALBUMIN 2.8 G/DL (3.4-5.0); ANION GAP 10 (8-16); BLOOD UREA NITROGEN 26 MG/DL (7-18); BUN/CREATININE RATIO 26.8 (6.6-38.0); CALCIUM 8.5 MG/DL (8.5-10.1); CHLORIDE 105 MMOL/L (99-107); CREATININE 0.97 MG/DL (0.40-0.90); GLUCOSE 81 MG/DL (70-104); MAGNESIUM 1.9 MG/DL (1.5-2.4); POTASSIUM 4.5 MMOL/L (3.5-5.1); SODIUM 143 MMOL/L (135-145); TOTAL CARBON DIOXIDE 28.4 MMOL/L (24-32); eGFR 56 ML/MIN
[2017-12-15] MEDS: levoTHYROXINE 88mcg tablet PO SCH (07:50)
[2017-12-15] MEDS: docusate sod 100mg capsule PO SCH (07:50)
[2017-12-15] MEDS: K and/or MAG REPLACEMENT MC SCH (07:50)
[2017-12-15] MEDS: pantoprazole 40mg Tablet.DR PO SCH (07:50)
[2017-12-15] MEDS: metoprolol tartrate 12.5mg (1/2 tablet) PO SCH (07:57)
[2017-12-15] MEDS: potassium Cl 20 mEq SR tablet PO SCH (07:57)
[2017-12-15] MEDS: aspirin 325mg tablet, delayed-release (Ecotrin) PO SCH (07:57)
[2017-12-15] MEDS: amiodarone 200mg tablet PO SCH (07:57)
[2017-12-15] MEDS: atorvastatin 10mg tablet PO SCH (07:57)
[2017-12-15] MEDS: magnesium Cl slow-release 64mg tablet PO SCH (07:59)
[2017-12-15] MEDS ORDERED: METO25TA6 PO (12:30)
[2017-12-15] MEDS ORDERED: ATOR10TA PO (12:30)
[2017-12-15] MEDS ORDERED: AMIO200T57 PO (12:30)
[2017-12-15] MEDS ORDERED: HYDR-3972 PO (12:30)
[2017-12-15] MEDS ORDERED: COL100C PO (12:30)
== END 2017-12-15 16:27 | disposition home or self-care (01) | DRG 233 ==
LOC: ER 11:06 → PCU 3S 15:37 → CICU 2S 19:05 → PCU 3S 12-12 11:35 → ICU 2S 12-12 21:25
PROVIDERS: ADMIT Family Medicine; ATTEND Thoracic Surgery (Cardiothoracic Vascular Surgery)
PROC: 02100Z9 Bypass Coronary Artery, One Artery from Left Internal Mammary, Open Approach (ICD-10-PCS; 2017-12-07)
PROC: 021109W Bypass Coronary Artery, Two Arteries from Aorta with Autologous Venous Tissue, Open Approach (ICD-10-PCS; 2017-12-07)
PROC: 06BP4ZZ Excision of Right Saphenous Vein, Percutaneous Endoscopic Approach (ICD-10-PCS; 2017-12-07)
PROC: B2111ZZ Fluoroscopy of Multiple Coronary Arteries using Low Osmolar Contrast (ICD-10-PCS; 2017-12-07)
PROC: B2151ZZ Fluoroscopy of Left Heart using Low Osmolar Contrast (ICD-10-PCS; 2017-12-07)
PROC: B24BZZ4 Ultrasonography of Heart with Aorta, Transesophageal (ICD-10-PCS; 2017-12-07)
PROC: 5A1221Z Performance of Cardiac Output, Continuous (ICD-10-PCS; 2017-12-07)
PROC: 02HV33Z Insertion of Infusion Device into Superior Vena Cava, Percutaneous Approach (ICD-10-PCS; 2017-12-07)
PROC: 02HP32Z Insertion of Monitoring Device into Pulmonary Trunk, Percutaneous Approach (ICD-10-PCS; 2017-12-07)
PROC: 4A133B3 Monitoring of Arterial Pressure, Pulmonary, Percutaneous Approach (ICD-10-PCS; 2017-12-07)
PROC: 4A1239Z Monitoring of Cardiac Output, Percutaneous Approach (ICD-10-PCS; 2017-12-07)
PROC: 4A023N7 Measurement of Cardiac Sampling and Pressure, Left Heart, Percutaneous Approach (ICD-10-PCS; principal; 2017-12-07 22:25)
PROC: 30233N1 Transfusion of Nonautologous Red Blood Cells into Peripheral Vein, Percutaneous Approach (ICD-10-PCS; 2017-12-08)
DX: I21.4 Non-ST elevation (NSTEMI) myocardial infarction (principal); I50.41 Acute combined systolic (congestive) and diastolic (congestive) heart failure; I47.2 Ventricular tachycardia; I48.91 Unspecified atrial fibrillation; R63.0 Anorexia; M41.9 Scoliosis, unspecified; T17.990A Other foreign object in respiratory tract, part unspecified in causing asphyxiation, initial encounter; I25.110 Atherosclerotic heart disease of native coronary artery with unstable angina pectoris; E03.9 Hypothyroidism, unspecified; M81.0 Age-related osteoporosis without current pathological fracture; Z98.1 Arthrodesis status; Z88.5 Allergy status to narcotic agent; Z79.82 Long term (current) use of aspirin; Z79.899 Other long term (current) drug therapy; Z85.3 Personal history of malignant neoplasm of breast; Z87.891 Personal history of nicotine dependence; Y92.89 Other specified places as the place of occurrence of the external cause
CPT/HCPCS: 0232T; 93306; 93312; 93325; 93458; 96365; 96372; 99285; 36415; 36600; 71045; 80048; 80053; 81003; 82330; 82435; 82803; 82947; 82948; 83036; 83735; 84100; 84132; 84295; 84484; 85018; 85025; 85347; 85384; 85610; 85730; 86885; 86900; 86901; 86920; 87070; 93005; 93880; 93970; 94002; 94060; 94640; 94760; 97110; 97116; 97161; 97530; 99152; A4315; A4620; A6213; A6255; A6257; A6258; A6402; A6449; A7000; A7048; C1751; C1758; C1769; C9113; J0282; J0690; J1200; J1644; J1650; J1815; J1940; J2001; J2060; J2150; J2250; J2270; J2370; J2405; J2440; J2930; J3370; J3475; J3480; J3490; J7030; J7120; P9016; P9045; P9047; Q9967

== ENCOUNTER 2021-10-18 13:39 | Inpatient (IN) | payer MEDICARE ==
[~2021-10-18] VITALS: Ht 162.6 cm; Wt 65.9 kg
[2021-10-18 12:00] VITALS: BP 122/68
[~2021-10-18 13:39] MED LIST: AMOX-580 PO; ASPI81TA52 PO; ATOR20TA66 PO; CHOL10006 PO; DILT180C66 PO; LACT1CAP26 PO; LEVO75TA7 PO; LOSA50TA64 PO; METO-395 PO; PANT-47 PO
[2021-10-18 14:53] LABS: BASOPHILS # (AUTO) 0.1 X10'3 (0-0.2); BASOPHILS % (AUTO) 0.9 % (0-1); EOSINOPHILS # (AUTO) 0.2 X10'3 (0-0.9); EOSINOPHILS % (AUTO) 2.7 % (0-6); HEMATOCRIT 33.4 % (35.0-45.0); LYMPHOCYTES # (AUTO) 0.9 X10'3 (1.1-4.8); MEAN CORPUSCULAR HEMOGLOBIN 31.2 PG (27.0-31.0); MEAN CORPUSCULAR HGB CONC 32.8 g/dL (33.0-36.5); MEAN CORPUSCULAR VOLUME 95.1 FL (78-98); MEAN PLATELET VOLUME 8.2 FL (7.4-10.4); MONOCYTES # (AUTO) 0.6 X10'3 (0-0.9); MONOCYTES % (AUTO) 9.2 % (2-12); NEUTROPHILS % (AUTO) 74.2 % (42-75); PLATELET COUNT 306 X10'3 (140-440); RED BLOOD COUNT 3.51 X10'6 (4.20-5.60); RED CELL DISTRIBUTION WIDTH 15.9 % (11.5-14.5); WHITE BLOOD COUNT 6.8 X10'3 (4.5-11.0)
[2021-10-18 15:02] LABS: ALANINE AMINOTRANSFERASE 19 U/L (12-78); ALBUMIN 2.8 G/DL (3.4-5.0); ALBUMIN/GLOBULIN RATIO 0.6 (1.1-1.5); ALKALINE PHOSPHATASE 91 IU/L (46-116); ANION GAP 7 (8-16); ASPARTATE AMINO TRANSFERASE 24 U/L (10-37); BILIRUBIN,TOTAL 0.4 MG/DL (0.1-1.0); BLOOD UREA NITROGEN 14 MG/DL (7-18); BUN/CREATININE RATIO 17.9 (6.6-38.0); CALCIUM 8.2 MG/DL (8.5-10.1); CHLORIDE 107 MMOL/L (99-107); CREATININE 0.78 MG/DL (0.40-0.90); GLUCOSE 106 MG/DL (70-104); POTASSIUM 3.7 MMOL/L (3.5-5.1); SODIUM 144 MMOL/L (135-145); TOTAL CARBON DIOXIDE 30.2 MMOL/L (24-32); TOTAL PROTEIN 7.2 G/DL (6.4-8.2); eGFR 72 ML/MIN
[2021-10-18] MEDS ORDERED: iohexol 350MG/ML 100ml bottle IV ONE (15:36)
[2021-10-18] MEDS ORDERED: furosemide 10 MG/1 ML 10ml inj IV ONE (17:05)
[2021-10-18] MEDS ORDERED: FURO20TA4 PO (17:30)
[2021-10-18] MEDS ORDERED: AMOX-422 PO (17:30)
[2021-10-18] MEDS ORDERED: DILT-36 PO (17:30)
--- NOTE | 2021-10-18 18:07 | NUR ---
pt was able ambulate started with o2 stat 97 dropped to 80 within 40 feet came back up to 97 with 2L o2 and was able to cont to ambulate and stats maintained upper 90's on 2 L o2
--- NOTE | 2021-10-18 18:20 | NUR ---
pt ambulated to bathroom with o2 stated that she felt better
[2021-10-18] MEDS ORDERED: LIDOcaine 1% 30ml preserv. free vial IJ STA (19:38)
[2021-10-18] MEDS ORDERED: PERFLUTREN PROTEIN-A MICROSPHR (Optison) 0.22 MG/ML 3ML VIAL IV ONE (19:40)
[2021-10-18] MEDS ORDERED: magnesium 2GM in 50ml NS 50 ML IV PRN (19:40)
[2021-10-18] MEDS ORDERED: ondansetron/PF 4mg/2ml inj IV PRN (19:40)
[2021-10-18] MEDS ORDERED: potassium CL 10mEq/100ml bag 100 ML IV PRN (19:40)
[2021-10-18] MEDS ORDERED: acetaminophen 325mg tablet PO PRN (19:40)
[2021-10-18] MEDS ORDERED: mag hydrox/Alum hydrox/simeth 30ml oral suspension PO PRN (19:40)
[2021-10-18] MEDS ORDERED: potassium Cl 20 mEq SR tablet PO PRN ×2 (19:40)
[2021-10-18] MEDS ORDERED: magnesium 4gm in 100ml NS 100 ML IV PRN (19:40)
[2021-10-18] MEDS ORDERED: magnesium hydroxide 30ml (MOM) UD suspension PO PRN (19:40)
[2021-10-18] MEDS ORDERED: magnesium Cl slow-release 64mg tablet PO PRN (19:40)
[2021-10-18] MEDS: K and/or MAG REPLACEMENT MC SCH (19:50)
[2021-10-18] MEDS: docusate sod 100mg capsule PO SCH (20:00)
[2021-10-18] MEDS ORDERED: LIDOcaine 1% W/epiNEPHrine 1:100,000 20ml vial SQ ONE (20:15)
[2021-10-18] MEDS ORDERED: losartan 50mg tablet PO SCH (21:00)
[2021-10-18] MEDS ORDERED: atorvastatin 20mg tablet PO SCH (21:00)
[2021-10-18] MEDS ORDERED: aspirin 81mg, enteric-coated 1 TAB TABLET.DR PO SCH (21:00)
[2021-10-18] MEDS ORDERED: cholecalciferol (vitamin D3) 1,000 unit (25mcg) tablet PO SCH (21:00)
[2021-10-18] MEDS ORDERED: metoprolol succinate 25mg (24-HOUR) SR. Tablet PO SCH (21:00)
[2021-10-18 21:14] LABS: BFSOURCE PLEURAL FLD; PLEURAL FLUID PH 7.569 (7.63-7.65)
[2021-10-18 21:28] LABS: MAGNESIUM 1.5 MG/DL (1.5-2.4); POTASSIUM 3.5 MMOL/L (3.5-5.1)
[2021-10-18 21:30] LABS: ALBUMIN,BODY FLUID 1.9 G/DL; LDH,BODY FLUID 94 U/L; TOTAL PROTEIN,BODY FLUID 4.1 G/DL
[2021-10-18 21:45] LABS: BFAPPEAR HAZY
[2021-10-18 21:46] LABS: BF RBC COUNT 1805 /CU MM; BF WBC COUNT 700 /CU MM (0-1000); BFCOLOR YELLOW; BFVOLUME 14 ML
[2021-10-18 22:22] LABS: EOSINOPHILS,BODY FLUID 1 %; LYMPHOCYTES,BODY FLUID 37 %; MONOCYTES,BODY FLUID 28 %; NEUTROPHILS,BODY FLUID 35 %
[2021-10-18 22:24] LABS: BF MESOTHELIAL CELLS MODERATE; OTHER CELLS,BODY FLUID MACROPHAGES
[2021-10-18] MEDS: amox tr/potassium clavulanate 875/125mg TAB PO SCH (22:25)
--- NOTE | 2021-10-18 22:31 | NUR ---
pt home phone number: [phone]
[2021-10-19 01:35] LABS: BASOPHILS # (AUTO) 0.1 X10'3 (0-0.2); BASOPHILS % (AUTO) 0.8 % (0-1); EOSINOPHILS # (AUTO) 0.1 X10'3 (0-0.9); HEMATOCRIT 33.1 % (35.0-45.0); HEMOGLOBIN 11.1 g/dl (12.0-16.0); LYMPHOCYTES # (AUTO) 0.8 X10'3 (1.1-4.8); LYMPHOCYTES % (AUTO) 8.1 % (21-51); MEAN CORPUSCULAR HEMOGLOBIN 31.6 PG (27.0-31.0); MEAN CORPUSCULAR HGB CONC 33.5 g/dL (33.0-36.5); MEAN CORPUSCULAR VOLUME 94.2 FL (78-98); MEAN PLATELET VOLUME 7.7 FL (7.4-10.4); MONOCYTES # (AUTO) 0.8 X10'3 (0-0.9); MONOCYTES % (AUTO) 8.6 % (2-12); NEUTROPHILS # (AUTO) 7.8 X10'3 (1.8-7.7); NEUTROPHILS % (AUTO) 81.5 % (42-75); PLATELET COUNT 291 X10'3 (140-440); RED BLOOD COUNT 3.51 X10'6 (4.20-5.60); RED CELL DISTRIBUTION WIDTH 15.8 % (11.5-14.5); WHITE BLOOD COUNT 9.5 X10'3 (4.5-11.0)
[2021-10-19 01:47] LABS: ALANINE AMINOTRANSFERASE 16 U/L (12-78); ALBUMIN 2.5 G/DL (3.4-5.0); ALBUMIN/GLOBULIN RATIO 0.6 (1.1-1.5); ALKALINE PHOSPHATASE 90 IU/L (46-116); ANION GAP 4 (8-16); ASPARTATE AMINO TRANSFERASE 21 U/L (10-37); BILIRUBIN,TOTAL 0.5 MG/DL (0.1-1.0); BLOOD UREA NITROGEN 12 MG/DL (7-18); BUN/CREATININE RATIO 13.8 (6.6-38.0); CALCIUM 9.2 MG/DL (8.5-10.1); CHLORIDE 104 MMOL/L (99-107); CREATININE 0.87 MG/DL (0.40-0.90); GLUCOSE 108 MG/DL (70-104); POTASSIUM 3.8 MMOL/L (3.5-5.1); SODIUM 143 MMOL/L (135-145); TOTAL CARBON DIOXIDE 34.7 MMOL/L (24-32); TOTAL PROTEIN 6.4 G/DL (6.4-8.2); eGFR 63 ML/MIN
[2021-10-19 01:51] LABS: MAGNESIUM 1.5 MG/DL (1.5-2.4)
[2021-10-19 02:00] VITALS: BP 93/64
[2021-10-19 06:00] VITALS: BP 96/58
--- NOTE | 2021-10-19 06:15 | NUR ---
Patient in room PCU 3022. I have received report from Yelena LANDRUM and had the opportunity to ask questions and assume patient care.
[2021-10-19] MEDS ORDERED: levoTHYROXINE 75mcg tablet PO SCH (08:00)
[2021-10-19] MEDS ORDERED: furosemide 20MG tablet PO SCH (08:00)
[2021-10-19] MEDS: K and/or MAG REPLACEMENT MC SCH (08:00)
[2021-10-19] MEDS ORDERED: pantoprazole 40mg Tablet.DR PO SCH (08:00)
[2021-10-19] MEDS ORDERED: diltiazem CD 180mg cap (once-daily) PO SCH (08:00)
[2021-10-19] MEDS: docusate sod 100mg capsule PO SCH (08:00)
[2021-10-19] MEDS: amox tr/potassium clavulanate 875/125mg TAB PO SCH (09:09)
[2021-10-19] MEDS ORDERED: FLU VACC QS2021-22(6MOS UP)/PF 60 MCG/0.5 ML SYRINGE IM ONE (09:40)
--- NOTE | 2021-10-19 10:30 | NUR ---
Pt ambulated 150ft on RA with no assistive devices. Pt complained of mild SOB and no discomfort. Pt's O2 sats dropped to 94%
[2021-10-19 11:00] VITALS: BP 113/70
--- NOTE | 2021-10-19 14:10 | NUR ---
Pt DC'd home with . Pt alert and oriented and vitals WNL upon DC. Per Dr. Lawton; Pt is stable for DC. IV removed, canula intact. Tele-box removed and returned to tele-tech. DC paperwork printed out and gone over with Pt. Allowed Pt and to ask questions concerning DC and then answered them. No new prescriptions. Pt has a follow up with her PCP, Dr. Noel, in two weeks time. Pt has a follow up with Dr. Branch on friday to have her SONI drain removed. Pt's belongings gathered and sent with Pt. Pt wheeled down to lobby in wheelchair and left in private vehicle with for home.
== END 2021-10-19 14:31 | disposition home or self-care (01) | DRG 187 ==
LOC: ER 13:42 → ED HOLD 19:45 → PCU 3S 23:50 → EDBEDREQ 23:57
PROVIDERS: ADMIT Internal Medicine; ATTEND Internal Medicine
PROC: 0W993ZZ Drainage of Right Pleural Cavity, Percutaneous Approach (ICD-10-PCS; principal; 2021-10-18)
PROC: B32T1ZZ Computerized Tomography (CT Scan) of Left Pulmonary Artery using Low Osmolar Contrast (ICD-10-PCS; 2021-10-18)
PROC: B3201ZZ Computerized Tomography (CT Scan) of Thoracic Aorta using Low Osmolar Contrast (ICD-10-PCS; 2021-10-18)
PROC: B32S1ZZ Computerized Tomography (CT Scan) of Right Pulmonary Artery using Low Osmolar Contrast (ICD-10-PCS; 2021-10-18)
PROC: 3E02340 Introduction of Influenza Vaccine into Muscle, Percutaneous Approach (ICD-10-PCS; 2021-10-19)
DX: J91.8 Pleural effusion in other conditions classified elsewhere (principal); J98.11 Atelectasis; R18.8 Other ascites; I11.0 Hypertensive heart disease with heart failure; E03.9 Hypothyroidism, unspecified; E78.00 Pure hypercholesterolemia, unspecified; E78.5 Hyperlipidemia, unspecified; I25.10 Atherosclerotic heart disease of native coronary artery without angina pectoris; Z20.822 Contact with and (suspected) exposure to COVID-19; I48.91 Unspecified atrial fibrillation; I50.9 Heart failure, unspecified; M41.9 Scoliosis, unspecified; R09.02 Hypoxemia; Z85.3 Personal history of malignant neoplasm of breast; I25.2 Old myocardial infarction; Z95.1 Presence of aortocoronary bypass graft; Z23 Encounter for immunization; Z88.5 Allergy status to narcotic agent; Z79.899 Other long term (current) drug therapy; Z79.890 Hormone replacement therapy
CPT/HCPCS: 36415; 71045; 71275; 80053; 82042; 83615; 83735; 83880; 83986; 84132; 84157; 84484; 85025; 87070; 87635; 89051; 93005; 93306; 96372; 96374; 99285; C9803; G0378; J1940; Q9967